=== PATIENT | male | born 1945 | race Caucasian/White ===

== ENCOUNTER → 2017-12-06 | Outpatient (CLI) | payer BC ==
--- NOTE | 2017-12-07 17:48 | PE ---
EXAMINATION TYPE: PET CT fusion skull to thigh DATE OF EXAM: 12/06/2017 CLINICAL HISTORY: 72-year-old male initial staging right lung cancer. Radiation therapy last on 12/03. TECHNIQUE: Following the intravenous administration of 11.44 mCi of F-18 FDG, whole body images are performed from the skull base to the midthigh. Images are reviewed on the computer in the coronal, axial, and sagittal planes. Reconstructed rotating images are created on independent workstation and reviewed on the computer. A localization and attenuation correction CT is performed in conjunction with the PET scan. Glucose level: 146 mg/dL CTDI: 4.59 mGy DLP: 462.93 mGy-cm COMPARISON: None. FINDINGS: PET: Physiologic FDG uptake within the neck. Complete to near complete opacification of the right hemithorax secondary to combination of moderate to large right pleural effusion, right lower lobe consolidation and atelectasis, right middle lobe co llapse, at least 2 masses in the right hemithorax. One is located in the right hilum abutting the mediastinum and hilar structures and truncating the ri ght mainstem bronchus, right upper lobe bronchus, with distal opening of the bronchus intermedius. Th e area of abnormal hypermetabolism measures up to 7.2 cm, maximum SUV 11.4. On CT, it is not delinea frederick from adjacent nonmetabolic opacity. The second hypermetabolic mass is located at the anterior right base peripheral to the collapsed righ t middle lobe measuring 4.4 cm, max SUV 10.4. There is some scattered patchy mild to borderline moderate uptake throughout the right lung especiall y peripherally in the right upper lobe, max SUV 3.4, likely relating to area of postobstructive pneum onitis. Small rounded focus of mild uptake, max SUV 2.8 posterior to the right hilar mass probably inflammato ry. There is mild uptake involving left anterolateral fourth, fifth, and sixth ribs at the site of suspec frederick subacute to chronic rib fractures, max SUV 1.6. Some focal patchy groundglass left upper lobe shows mild uptake, max SUV 1.8 likely infectious/inflam matory focus. Average liver SUV 1.9. ATTENUATION CORRECTION CT: Visualized paranasal sinuses and mastoid air cells are clear. Leftward nasal septal deviation. Oropha ryngeal airway is clear. No cervical lymphadenopathy. Heart upper limits of normal in size without pericardial effusion. Coronary vessel calcifications are present. Ectatic ascending aorta at 3.8 cm with mild atherosclerotic arch calcifications. Convention al arch vessel branching anatomy. No thoracic lymphadenopathy by CT size criteria. Borderline size caliber to the main pulmonary arteries, 2.5 cm on the right, may reflect underlying pulmonary arteria l hypertension. Moderate atherosclerotic calcifications continue within the abdominal aorta and iliac arteries. Mild diffuse anasarca type changes with additional fat stranding throughout the intra-abdominal fat. No dilated small bowel, free fluid, or free air. No mesenteric or retroperitoneal lymphadenopathy identi fied. Bladder nondistended. Small amount of pelvic free fluid likely secondary to fluid overload state. Pro state gland measures 4.5 cm wide. Bones: Degenerative changes throughout the lumbar spine with endplate spondylosis mid to lower thorac ic spine. Cervical spondylosis. IMPRESSION: 1. Large right hilar and endobronchial hypermetabolic neoplasm measuring at least 7.2 cm involving th e right mainstem bronchus, right upper lobe bronchus, and some of the upper portion of the bronchus i ntermedius. 2. A second hypermetabolic mass at the anterior right base measuring 4.4 cm could be in the periphery of the right middle lobe or could be pleural-based. 3. Complete to near complete opacification of the right hemithorax secondary to a combination of mode rate to large pleural effusion, right middle lobe collapse, mixed collapse and consolidation of the r ight lower lobe, and peripherally oriented, mildly hypermetabolic opacity in the right upper lobe, po ssibly postobstructive pneumonitis. 4. Some mildly hypermetabolic patchy groundglass in the left upper lobe likely infectious/inflammator y focus. 5. Slight increased hypermetabolism suggesting subacute to chronic left fourth, fifth, and sixth rib fractures. Correlate for trauma history. 6. Correlate for fluid overload and anasarca. Mild pelvic free fluid likely secondary to fluid overlo ad state.
== END | disposition home or self-care (01) ==
LOC: RADPETMAIN 15:42
PROVIDERS: ATTEND Radiology Diagnostic Radiology
DX: C34.01 Malignant neoplasm of right main bronchus (principal); J91.0 Malignant pleural effusion; J98.19 Other pulmonary collapse
CPT/HCPCS: 78815; A9552